=== PATIENT | male | born 1985 | race Caucasian/White ===

== ENCOUNTER 2017-01-28 06:29 | Day surgery (SDC) | payer BC ==
[2017-01-23 14:59] LABS: BASOPHILS 0.2 %; BASOPHILS ABSOLUTE 0.01 10/3/uL (0.0-0.16); EOSINOPHILS 2.3 %; EOSINOPHILS ABSOLUTE 0.15 10/3/uL (0.0-0.53); HEMOGLOBIN 15.5 g/dL (13.6-17.8); IMMATURE GRANULOCYTES 0.2 %; IMMATURE GRANULOCYTES ABSOLUTE 0.01 10/3/uL (0.0-0.11); LYMPHOCYTES 43.5 %; LYMPHOCYTES ABSOLUTE 2.88 10/3/uL (0.67-4.30); MEAN CORPUSCULAR HEMOGLOB 32.2 pg (26.0-34.0); MEAN CORPUSCULAR VOLUME 89.4 fL (80-100); MEAN PLATELET VOLUME 10.5 fL (9.2-13.0); MONOCYTES 8.6 %; MONOCYTES ABSOLUTE 0.57 10/3/uL (0.21-1.20); NEUTROPHILS 45.2 %; PLATELET COUNT 275 10/3/uL (150-400); RBC DISTRIBUTION WIDTH 12.9 % (12.0-16.0); RED CELL COUNT 4.81 10/6/uL (4.7-6.1); WHITE BLOOD CELLS 6.6 10/3/uL (4.5-10.5)
[2017-01-23 15:00] LABS: MANUAL DIFF NO %
[2017-01-23 15:11] LABS: BUN (BLOOD UREA NITROGEN) 10 MG/DL (6-23); CHLORIDE, SERUM 105 MMOL/L (96-112); CO2 (CARBON DIOXIDE) 30 MMOL/L (24-34); CREATININE 1.03 MG/DL (0.70-1.30); GFR AFRICAN AMERICAN 113 ML/MIN (>=60); GFR NON AFRICAN AMERICAN 98 ML/MIN (>=60); GLUCOSE, SERUM 78 MG/DL (60-99); POTASSIUM, SERUM 3.6 MMOL/L (3.5-5.3); SODIUM, SERUM 141 MMOL/L (135-148)
--- NOTE | ~2017-01-28 | OP ---
Record Of Operation [facility] [id number] [place] [place]. [address] NAME: KEKE BARBOUR ROSALBA : 89 STATUS : REG [facility] PAT#: [id number] AGE: 31 ADM/REG DATE : 01/28/17 MR#: [id number] REPORT SERV DATE: 01/28/17 DICTATED BY: JOSÉ MIGUEL JOHNSON DATE: 01/28/17 REPORT STATUS : Draft TRANSCRIBED BY: MODRemy DATE: 01/28/17 DATE OF PROCEDURE: 01/28/2017 SERVICE: Otolaryngology. PREOPERATIVE DIAGNOSES: 1. Acquired nasal deformity. 2. Deviated septum. 3. Bilateral turbinate hypertrophy. POSTOPERATIVE DIAGNOSES: 1. Acquired nasal deformity. 2. Deviated septum. 3. Bilateral turbinate hypertrophy. PROCEDURE: 1. Repair of nasal vestibular stenosis. 2. Septoplasty. 3. Bilateral inferior turbinate reduction and outfracture. 4. Folcroft of septal cartilage for use as a graft in the nose. ANESTHESIA: General endotracheal anesthesia. ESTIMATED BLOOD LOSS: 20 mL. COMPLICATIONS: None. SPECIMENS: Nasal bone and cartilage. FINDINGS: The patient had a severe and large nasal septal spur obstructing the left side of the nose posteriorly, bilateral internal valve insufficiency and hypertrophied turbinates. STATEMENT OF MEDICAL NECESSITY: A 31-year-old male with history of chronic nasal airway obstruction. No evidence of allergic disease. Had obvious mechanical obstruction on evaluation and recommended the above surgery. STATEMENT OF OPERATION: The patient was brought to the operating room in supine position and transferred to the operating table. All pressure points were padded and general endotracheal anesthesia was established. The nasal hairs were trimmed with short iris scissors. The cocaine-soaked pledgets were applied to both sides of the nose. 1% lidocaine with epinephrine was then injected into the skin and soft tissue envelope and the septal flaps bilaterally. The patient was then prepped and draped in the usual fashion. A small skin marker was used to iza a transcolumellar inverted V incision. Bilateral marginal incisions were then made followed by the transcolumellar incision. The columellar skin was elevated in the submuscular plane and connected to the marginal incisions. The skin and soft tissue envelope was elevated to completely expose the upper and lower lateral Record Of Operation [facility] [address] [place]. [address] NAME: KEKE BARBOUR : 89 STATUS : REG [facility] PAT#: [id number] AGE: 31 ADM/REG DATE : 01/28/17 MR#: [id number] REPORT SERV DATE: 01/28/17 DICTATED BY: JOSÉ MIGUEL JOHNSON DATE: 01/28/17 REPORT STATUS : Draft TRANSCRIBED BY: MODL DATE: 01/28/17 cartilages. The anterior septal angle was then approached with a #15 blade. Bilateral septal flaps were created in the subperichondrial and subperiosteal plane. The upper lateral cartilages were divided sharply from the dorsal septal cartilage with a #15 blade. The bony cartilaginous junction was then with a Stacey elevator. Vang scissors were used to make a superior cut and then an inferior cut removing a piece of deviated bony nasal septum including a large septal spur. Once this was removed, a D-knife was then used to harvest the anterior septal cartilage maintaining 1.5 cm caudal and dorsal strut. This was taken to the back table. Two rn otolaryngology grafts were harvested and caught with a #15 blade and one columellar strut graft. The rn otolaryngology grafts were placed between the upper lateral cartilage and the dorsal septal cartilage and were secured with interrupted horizontal mattress 5-0 PDS sutures. Next, a soft tissue pocket was created between the medial crura of the lower lateral cartilage with the assistance of holding the tip in appropriate projection and rotation. A transcolumellar suture incorporating both medial crura and the columellar strut graft was performed. The skin and soft tissue envelope was then redraped. The transcolumellar incision was closed with 6-0 fast-absorbing gut sutures. The internal nasal incision was closed with 4-0 chromic gut sutures. The inferior turbinates were then reduced using a microdebrider blade. They were outfractured using a Boies elevator. Hernandez splints were inserted and secured to the anterior septum with a 2-0 nylon stitch. The skin and face were cleansed thoroughly with warm saline. Mastisol solution was applied to the skin followed by modified Steri-Strips and a dorsal Aquaplast cast. This concluded the case. The patient was turned over to Anesthesia where he awoke, was extubated, and transferred to the PACU in stable condition. PS/JACK José Miguel Johnson MD / [id number] CC: MD Jing Olguin M.D.
[~2017-01-28 06:29] MED LIST: *DENIES; LOM PO; NORCO1 TA1 PO; PEP20 PO; PR25 PO
[2017-03-16] MEDS ORDERED: DAYQUIL PO/LIQ (15:29)
[2017-03-16] MEDS ORDERED: QUESLITE PO (15:30)
[2017-03-16] MEDS ORDERED: BUSPAR10 PO (15:30)
== END 2017-01-28 13:15 | disposition home or self-care (01) ==
LOC: SDC 06:29
PROVIDERS: Otolaryngology
PROC: 09SM0ZZ Reposition Nasal Septum, Open Approach (ICD-10-PCS; 2017-01-28)
PROC: 09BL0ZZ Excision of Nasal Turbinate, Open Approach (ICD-10-PCS; 2017-01-28)
PROC: 09UK07Z Supplement Nasal Mucosa and Soft Tissue with Autologous Tissue Substitute, Open Approach (ICD-10-PCS; principal; 2017-01-28 08:00)
DX: M95.0 Acquired deformity of nose (principal); J34.2 Deviated nasal septum; J34.3 Hypertrophy of nasal turbinates; Z79.899 Other long term (current) drug therapy; Z87.891 Personal history of nicotine dependence; Z98.818 Other dental procedure status; Z90.49 Acquired absence of other specified parts of digestive tract
CPT/HCPCS: 80048; 85025; 88300; 93005; A9270-GY; J0690; J2250; J2270; J2405; J2710; J3010